=== PATIENT | male | born 1990 | race Two or more races ===

== ENCOUNTER 2020-01-15 13:08 | Emergency (ER) | payer MEDICAID ==
[~2020-01-15] VITALS: Ht 167.6 cm; Wt 68.2 kg
[2020-01-15 14:42] VITALS: BP 126/64
== END 2020-01-15 16:00 | disposition home or self-care (01) ==
LOC: EMS 13:11
DX: R06.02 Shortness of breath (principal); F17.210 Nicotine dependence, cigarettes, uncomplicated; F41.9 Anxiety disorder, unspecified; Z88.6 Allergy status to analgesic agent; Z20.828 Contact with and (suspected) exposure to other viral communicable diseases
CPT/HCPCS: 87635